=== PATIENT | male | born 1930 | race Caucasian/White ===

== ENCOUNTER 2018-10-16 13:32 | Day surgery (SDC) | payer OTHER ==
[2018-10-16 14:30] VITALS: BMI 27.4
[2018-10-16] MEDS ORDERED: HEPARIN NA (PORCINE) 5,000 UNITS/ML 1ML VIAL ONE ×2 (15:50→16:41)
[2018-10-16] MEDS ORDERED: MIDAZOLAM HCL 2 MG/2 ML SINGLE DOSE VIAL ONE (16:39)
[2018-10-16] MEDS ORDERED: ceFAZolin SODIUM 1 GM VIAL ONE (16:43)
[2018-10-16] MEDS ORDERED: ceFAZolin SODIUM 1 GM VIAL IVPB ONE (16:44)
[2018-10-16] MEDS ORDERED: LIDOCAINE HCL 1%, 10 MG/ML (20ML VIAL) NR ONE (17:21)
--- NOTE | 2018-10-16 17:30 | OP ---
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
--- NOTE | 2018-10-16 17:31 | HP ---
Admitting History and Physical - Admission Chief Complaint: LLE claudication Limitations to Obtaining History: No Limitations - Past Medical History Cardiovascular: Yes: Hyperlipdemia Endocrine: Yes: Diabetes Mellitus - Smoking History Smoking history: Former smoker Have you smoked in the past 12 months: No - Alcohol/Substance Use Hx Alcohol Use: No Home Medications - Allergies Allergies/Adverse Reactions: Allergies Allergy/AdvReac Type Severity Reaction Status Date / Time No Known Allergies Allergy Verified 10/15/18 17:49 - Home Medications Home Medications: Ambulatory Orders Albuterol Sulfate [Proair Hfa] 8.5 gm IH Q4H 10/15/18 Allopurinol [Zyloprim -] 100 mg PO DAILY 10/15/18 Amlodipine Bes/Olmesartan Med [Albert 10-40 mg Tablet] 1 each PO DAILY 10/15/18 Aspirin [Adult Aspirin] 81 mg PO DAILY 10/15/18 Baclofen 10 mg PO DAILY 10/15/18 Cholecalciferol (Vitamin D3) [Vitamin D3 -] 400 unit PO DAILY 10/15/18 Esomeprazole Magnesium [Nexium 24Hr] 20 mg PO DAILY 10/15/18 Rosuvastatin Calcium [Crestor] 10 mg PO DAILY 10/15/18 Tamsulosin HCl [Flomax] 0.4 mg PO DAILY 10/15/18 Umeclidinium [place] [Incruse Ellipta] 62.5 mcg IH DAILY 10/15/18 metFORMIN XR [Glucophage *Xr* -] 500 mg PO DAILY 10/15/18 Clopidogrel Bisulfate [Clopidogrel] 75 mg PO DAILY 10/16/18 Hydrocodone/Acetaminophen [Hydrocodone-Acetamin 5-325 mg] 1 each PO PRN Vitamin B Complex 1 each PO DAILY 10/16/18 Review of Systems - Review of Systems Constitutional: reports: No Symptoms Eyes: reports: No Symptoms HENT: reports: No Symptoms Neck: reports: No Symptoms Cardiovascular: reports: No Symptoms Respiratory: reports: No Symptoms Gastrointestinal: reports: No Symptoms Genitourinary: reports: No Symptoms Musculoskeletal: reports: No Symptoms Integumentary: reports: No Symptoms Endocrine: reports: No Symptoms Hematology/Lymphatic: reports: No Symptoms Psychiatric: reports: No Symptoms Physical Examination Vital Signs: Vital Signs Temperature 98.1 F 10/16/18 14:40 Pulse Rate 79 10/16/18 14:40 Respiratory Rate 18 10/16/18 14:40 Blood Pressure 145/67 10/16/18 14:40 O2 Sat by Pulse Oximetry (%) 97 10/16/18 14:41 Constitutional: Yes: Well Nourished, No Distress, Calm Eyes: Yes: WNL, Conjunctiva Clear, EOM Intact HENT: Yes: WNL, Atraumatic, Normocephalic Neck: Yes: WNL, Supple, Trachea Midline Cardiovascular: Yes: WNL, Regular Rate and Rhythm Respiratory: Yes: WNL, Regular, CTA Bilaterally Gastrointestinal: Yes: WNL, Normal Bowel Sounds Musculoskeletal: Yes: WNL Extremities: Yes: WNL Edema: No Peripheral Pulses WNL: No Integumentary: Yes: WNL Neurological: Yes: WNL, Alert, Oriented ...Motor Strength: WNL Psychiatric: Yes: WNL Problem List - Problems (1) Claudication of left lower extremity Assessment/Plan: Angiogram today Code(s): I73.9 - PERIPHERAL VASCULAR DISEASE, UNSPECIFIED
[2018-10-16 18:07] LABS: PROTHROMBIN TIME (PATIENT) 11.8 SEC (9.7-13.0)
[2018-10-16] MEDS ORDERED: CLOPIDOGREL BISULFATE 75 MG TABLET (FP) ONE (18:18)
[2018-10-16 19:08] VITALS: BP 145/73; PULSE 65; TEMP 97.5
[2018-10-16] MEDS ORDERED: ONDANSETRON 4 MG/2 ML VIAL IVPUSH PRN (19:08)
[2018-10-16] MEDS ORDERED: ACETAMINOPHEN 325 MG TABLET (FP) PO PRN (19:08)
[2018-10-16] MEDS ORDERED: CLOPIDOGREL BISULFATE 75 MG TABLET (FP) PO ONE (19:09)
--- NOTE | 2018-11-18 08:25 | OP ---
DATE OF DICTATION: 11/17/2018 PREOPERATIVE DIAGNOSIS: Left lower extremity claudication. POSTOPERATIVE DIAGNOSIS: Left lower extremity claudication. PROCEDURE: Aortogram, left lower extremity angiogram, drug-coated balloon superficial femoral artery angioplasty with superficial femoral artery stent placement. SURGEON: Ronan Kaplan DO ANESTHESIA: Fractional. BLOOD LOSS: 50 mL INDICATION: The patient is an 88-year-old male who complains of left lower extremity claudication less than 1 block. 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 Patient was consented for the procedure, understanding all risks, benefits, and alternatives. DESCRIPTION OF PROCEDURE: From ambulatory surgery, the patient was then brought to the operating room and laid on the operating table in supine manner. The area of the right and left groin was prepped and draped in sterile surgical manner. We then injected 10 mL of lidocaine 1% over the right common femoral artery. We then used a Micropuncture needle and entered the right common femoral artery. Micropuncture wire was inserted and a traditional 5-[place] sheath was inserted. We then placed a 0.035 floppy guidewire up into the aorta, followed by an Omniflush catheter. We then shot an angiogram of the aorta done by hand injection, showing that the aorta and iliac arteries were without any disease. We then placed a 0.035 floppy guidewire up and over to the left common femoral artery, followed by Omniflush catheter. We then shot an angiogram of the left lower extremity showing that the common femoral artery and the proximal SFA were patent, but the mid to distal SFA was severely 90% for about 6 cm. Popliteal artery was patent, and patient had 2-vessel runoff into the foot. We then placed a 0.035 stiff guidewire to the SFA, removed our Omniflush catheter, placed a 6 x 45 crossover sheath, and 5000 units of IV heparin was administered to patient. Using a Quick-Cross catheter, we were able to cross our SFA lesion, and we then went ahead and used a 6 x 8 drug-coated balloon, angioplasty balloon, Lutonix balloon, and performed angioplasty of the SFA. Balloon was left up for 3 minutes to let the drug disseminate. We then shot an angiogram of the left lower extremity, and it showed that there was a filling defect in the SFA with dissection. We went ahead and then placed a 6 x 8 LifeStent, which was then ballooned in place using a 6 x 8 Ultraverse balloon. Completion angiogram now showed that the SFA was patent. There was good brisk flow after this was done into the foot. There were no signs of dissection. At this point we brought our sheath up and over and was successfully deployed in the right common femoral artery. . The patient tolerated the procedure without complication, and he was transferred to the PACU in stable condition. RONAN KAPLAN DO [id number]
== END 2018-10-16 19:10 | disposition home or self-care (01) ==
LOC: JASU-SURG 13:32
PROVIDERS: ATTEND Surgery Vascular Surgery
PROC: B41DYZZ Fluoroscopy of Aorta and Bilateral Lower Extremity Arteries using Other Contrast (ICD-10-PCS; 2018-10-16)
PROC: 047K3D1 Dilation of Right Femoral Artery with Intraluminal Device, using Drug-Coated Balloon, Percutaneous Approach (ICD-10-PCS; principal; 2018-10-16 15:00)
DX: I70.212 Atherosclerosis of native arteries of extremities with intermittent claudication, left leg (principal)
CPT/HCPCS: 36245; 37226; C1877; C2623; 36415; 76000-TC-FY; 82962; 85610; 94760; J1644